=== PATIENT | female | born 1970 | race Caucasian/White ===

== ENCOUNTER 2018-02-13 11:42 | Emergency (ER) | payer BC ==
[2018-02-13 12:43] LABS: BASO # 0.1 10^3/uL (0.0-0.2); BASO % 0.7 % (0.0-1.0); EOS # 0.4 10^3/uL (0.0-0.50); HEMATOCRIT 38.7 % (36.0-47.0); HEMOGLOBIN 13.5 g/dl (12.0-15.5); IMMATURE GRANULOCYTE % 1.2 % (0-3.0); LYMPH # 3.5 10^3/uL (1.5-4.5); LYMPH % 25.7 % (24.0-44.0); MEAN CORPUSCULAR HEMOGLOBIN 30.6 pg (27.0-33.0); MEAN CORPUSCULAR HGB CONC 34.9 g/dl (32.0-36.5); MEAN CORPUSCULAR VOLUME 87.8 fl (80.0-96.0); MONO # 0.9 10^3/uL (0.0-0.8); MONO % 6.7 % (0.0-5.0); NEUTROPHILS # 8.6 10^3/uL (1.8-7.7); NEUTROPHILS % 62.7 % (36.0-66.0); PLATELET COUNT, AUTOMATED 234 10^3/uL (150-450); RED BLOOD COUNT 4.41 10^6/uL (4.00-5.40); RED CELL DISTRIBUTION WIDTH 12.4 % (11.5-14.5); WHITE BLOOD COUNT 13.6 10^3/uL (4.0-10.0)
[2018-02-13 13:09] LABS: ANION GAP 9 MEQ/L (8-16); BLOOD UREA NITROGEN 12 MG/DL (7-18); CALCIUM LEVEL 8.8 MG/DL (8.5-10.1); CARBON DIOXIDE LEVEL 25 MEQ/L (21-32); CHLORIDE LEVEL 106 MEQ/L (98-107); CREATININE FOR GFR 0.79 MG/DL (0.55-1.30); GLOMERULAR FILTRATION RATE > 60.0 (>58); GLUCOSE, FASTING 82 MG/DL (70-100); POTASSIUM SERUM 3.9 MEQ/L (3.5-5.1); SODIUM LEVEL 140 MEQ/L (136-145)
[2018-02-13] MEDS ORDERED: GASTROGRAFIN SOLUTION 30ML (Q9963) As Ordered (13:27)
[2018-02-13] MEDS: GASTROGRAFIN SOLUTION 30ML PO ×2 (14:20→14:21)
[2018-02-13] MEDS ORDERED: ISOVUE-370 76% 100ML VIAL (Q9967) As Ordered (15:00)
== END 2018-02-13 16:21 | disposition home or self-care (01) ==
LOC: M ED 11:42
DX: K57.81 Diverticulitis of intestine, part unspecified, with perforation and abscess with bleeding (principal); N83.291 Other ovarian cyst, right side; G47.00 Insomnia, unspecified
CPT/HCPCS: Q9967

== ENCOUNTER 2018-04-13 09:41 | Day surgery (SDC) | payer BC ==
[~2018-04-13 09:41] MED LIST: LIDOCAINE 2% INJ 100 MG/5 ML SDV (FOR ANES.) As Ordered
[2018-04-13] MEDS ORDERED: NS 1,000 ML IV (10:30)
[2018-04-13] MEDS ORDERED: PROPOFOL 200 MG/20 ML VIAL As Ordered ×2 (10:51)
== END 2018-04-13 11:38 | disposition home or self-care (01) ==
LOC: M OPP 09:41
DX: K62.5 Hemorrhage of anus and rectum (principal); K64.8 Other hemorrhoids; G47.30 Sleep apnea, unspecified; Z98.890 Other specified postprocedural states
CPT/HCPCS: 45378

== ENCOUNTER 2019-01-01 11:06 | Day surgery (SDC) | payer OTHER ==
[~2019-01-01] VITALS: Ht 154.9 cm; Wt 65.5 kg
[~2019-01-01 11:06] MED LIST changes: +AMBI10TA PO; +AMBI5TAB PO; +AMOX875T PO; +BENA25CA4 PO; -LIDOCAINE 2% INJ 100 MG/5 ML SDV (FOR ANES.) As Ordered; +METO5TAB2 PO; +NS 1,000 ML IV ONE; +RANI150T PO; +TAMO10TA PO
[2019-01-01] MEDS ORDERED: LIDOCAINE 2% INJ 100 MG/5 ML SDV (FOR ANES.) As Ordered ONE (12:19)
[2019-01-01] MEDS ORDERED: PROPOFOL 200 MG/20 ML VIAL As Ordered ONE (12:19)
[2019-01-01] MEDS ORDERED: fentaNYL 100 MCG/2 ML INJECTION (J3010) As Ordered ONE (12:46)
[2019-01-01 13:30] VITALS: BP 134/82
--- NOTE | 2019-01-01 13:38 | ROOR ---
Patient Name: Vandana Mckinney Procedure Date: 01/01/2019 12:43 PM Date of : 1970 Age: 48 Room: [facility] Gender: Female Note Status: Finalized Procedure: Upper GI endoscopy Indications: Dyspepsia, Nausea Providers: Hola Smith MD Referring MD: Darci Sandoval DO, Sergio Rodgers Md Mph Requesting Provider: Medicines: Monitored Anesthesia Care Complications: No immediate complications. Procedure: Pre-Anesthesia Assessment: - Prior to the procedure, a History and Physical was performed, and patient medications and allergies were reviewed. The patient is competent. The risks and benefits of the procedure and the sedation options and risks were discussed with the patient. All questions were answered and informed consent was obtained. Patient identification and proposed procedure were verified by the physician, the nurse and the anesthesiologist in the procedure room. Mental Status Examination: alert and oriented. Airway Examination: normal oropharyngeal airway and neck mobility. Respiratory Examination: clear to auscultation. CV Examination: normal. Prophylactic Antibiotics: The patient does not require prophylactic antibiotics. Prior Anticoagulants: The patient has taken no previous anticoagulant or antiplatelet agents. ASA Grade Assessment: II - A patient with mild systemic disease. After reviewing the risks and benefits, the patient was deemed in satisfactory condition to undergo the procedure. The anesthesia plan was to use monitored anesthesia care (MAC). Immediately prior to administration of medications, the patient was re-assessed for adequacy to receive sedatives. The heart rate, respiratory rate, oxygen saturations, blood pressure, adequacy of pulmonary ventilation, and response to care were monitored throughout the procedure. The physical status of the patient was re-assessed after the procedure. The Endoscope was introduced through the mouth, and advanced to the second part of duodenum. The upper GI endoscopy was accomplished without difficulty. The patient tolerated the procedure well. Findings: The examined esophagus was normal. The Z-line was regular and was found in the distal esophagus. Scattered mild inflammation characterized by erythema and granularity was found in the gastric antrum. Biopsies were taken with a cold forceps for Helicobacter pylori testing. Verification of patient identification for the specimen was done by the physician and nurse using the patient's name, date and medical record number. Estimated blood loss was minimal. The duodenal bulb and second portion of the duodenum were normal. Biopsies for histology were taken with a cold forceps for evaluation of celiac disease. Impression: - Normal esophagus. - Z-line regular, in the distal esophagus. - Gastritis. Biopsied. - Normal duodenal bulb and second portion of the duodenum. Biopsied. Recommendation: - Patient has a contact number available for emergencies. The signs and symptoms of potential delayed complications were discussed with the patient. Return to normal activities tomorrow. Written discharge instructions were provided to the patient. - Resume previous diet. - Continue present medications. - Await pathology results. - Telephone GI clinic for pathology results in 2 weeks. - Return to primary care physician. Hola Smith MD Hola Smith MD 01/01/2019 1:38:21 PM Electronically signed by Hola Smith MD Number of Addenda: 0 Note Initiated On: 01/01/2019 12:43 PM Estimated Blood Loss: Estimated blood loss was minimal.
== END 2019-01-01 13:30 | disposition home or self-care (01) ==
LOC: M OPP 11:06
PROVIDERS: ATTEND Internal Medicine Gastroenterology
DX: K29.70 Gastritis, unspecified, without bleeding (principal); R11.0 Nausea; R10.13 Epigastric pain; Z79.899 Other long term (current) drug therapy
CPT/HCPCS: 43239; 88305; J3010

== ENCOUNTER → 2020-07-10 | Outpatient (CLI) | payer OTHER ==
[~2020-07-10] MED LIST changes: -NS 1,000 ML IV ONE
== END ==
LOC: M LABSMTC 09:54
PROVIDERS: ATTEND Anesthesiology
DX: Z01.812 Encounter for preprocedural laboratory examination (principal); Z20.822 Contact with and (suspected) exposure to COVID-19

== ENCOUNTER 2020-07-15 10:09 | Day surgery (SDC) | payer BC ==
[~2020-07-15] VITALS: Ht 154.9 cm; Wt 65.8 kg
[~2020-07-15 10:09] MED LIST changes: +LIDOCAINE 1% MDV 20ML VIAL SQ PRN; +LIDOCAINE 2% 100MG/5ML SDV (FOR ANES.) As Ordered ONE; +LR 1,000 ML IV ONE; +MIDAZOLAM INJ 2MG/2ML VIAL (J2250 PER 1MG) As Ordered ONE; +ONDANSETRON 4MG/2ML VIAL As Ordered ONE; +ROCURONIUM BROMIDE 50 MG/5 ML VIAL As Ordered ONE; +ceFAZolin SOD 1 GM in D5W MINI-BAG PLUS 50 ML IV ONE; +dexameTHASONE 4 MG/ML 1ML VIAL (J1100 PER 1MG) As Ordered ONE; +fentaNYL 250 MCG/5 ML INJECTION (J3010) As Ordered ONE; +propofoL 200 MG/20 ML VIAL As Ordered ONE
[2020-07-15] MEDS ORDERED: BUPIVACAINE LIPOSOME/PF 1.3% 20ML VIAL (13.3MG/ML)(EXPAREL)(C9290 PER1MG) As Ordered ONE ×2 (11:55→12:38)
[2020-07-15] MEDS ORDERED: BACITRACIN PWD 50,000 UNITS VIAL As Ordered ONE ×2 (11:55→12:12)
[2020-07-15] MEDS ORDERED: SEVOFLURANE INHAL SOLN 250 ML BTL As Ordered ONE (12:00)
[2020-07-15] MEDS ORDERED: METOCLOPRAMIDE INJ 10MG/2ML VIAL (J2765 PER 1) As Ordered ONE ×2 (13:10→16:12)
[2020-07-15] MEDS ORDERED: SUGAMMADEX SODIUM 500 MG/5 ML VIAL (BRIDION) As Ordered ONE (13:13)
[2020-07-15] MEDS ORDERED: ACETAMINOPHEN 1000MG 100ML IV BTL (OFIRMEV) (J0131 PER 10MG) As Ordered ONE (13:13)
[2020-07-15] MEDS ORDERED: ePHEDrine SULFATE 25 MG/5 ML(5MG/ML) SYRINGE As Ordered ONE (13:21)
[2020-07-15] MEDS ORDERED: ROCURONIUM BROMIDE 50 MG/5 ML VIAL As Ordered ONE (13:37)
[2020-07-15] MEDS ORDERED: HYDROmorphone HCL 2 MG/ML 1ML VIAL (J1170) As Ordered ONE (14:07)
--- NOTE | 2020-07-15 15:08 | POST-OPPD ---
Postoperative Procedure Note Date Of Procedure: Jul 15, 2020 PREOPERATIVE DIAGNOSIS: H/o Right breast malignant neoplasm. Acquired asymmetry breasts. POSTOPERATIVE DIAGNOSIS: same FINDINGS: Right breast s/p radiation, lumpectomy. Left breast with ptosis. Larger size. PROCEDURE: Breast reconstruction via bilateral breast augmentation with left breast mastopexy. SURGEON: Dr Clancy ANESTHESIA: General SPECIMENS: none ESTIMATED BLOOD LOSS: 50 cc REPLACED: none DRAINS: none IMPLANTS: [place] gel moderate plus. Right side 200cc, Left side 175cc. COMPLICATIONS: none POSTOPERATIVE CONDITION: stable LYLA CLANCY DO Jul 15, 2020 15:07
--- NOTE | 2020-07-15 15:08 | ROOPDOC ---
[facility] Report Of Operation Report of Operation DATE OF PROCEDURE: 07/15/20 PREOPERATIVE DIAGNOSIS: H/o Right breast malignant neoplasm. Acquired asymmetry breasts. POSTOPERATIVE DIAGNOSIS: same FINDINGS: Right breast s/p radiation, lumpectomy. Left breast with ptosis. Larger size. PROCEDURE: Breast reconstruction via bilateral breast augmentation with left breast mastopexy. SURGEON: Dr Clancy ANESTHESIA: General SPECIMENS: none ESTIMATED BLOOD LOSS: 50 cc REPLACED: none DRAINS: none IMPLANTS: [place] gel moderate plus. Right side 200cc, Left side 175cc. COMPLICATIONS: none POSTOPERATIVE CONDITION: stable DESCRIPTION OF PROCEDURE: This is a 50-year-old female who presents to our office complaining of asymmetry between the right and left breast. Patient is status post right breast lumpectomy with sentinel lymph node biopsy followed by radiation. Currently she has smaller and thicker breast on the right and larger left breast with ptosis. Her measurements are from sternal notch to the nipple areolar complex 24 cm on the left and 21 cm on the right. Her inframammary fold (IMF) is at 21 cm. Patient wishes to achieve full symmetry. She has contracted scar from biopsy on the right lateral breast and well-healed scar in the lower right axilla. Bilateral breast augmentation and mastopexy of the left breast would achieve symmetry and is appropriate choice of procedure. Risks, benefits, and alternatives were discussed with the patient in detail, and she is ready to proceed. The day of surgery, she was marked in the upright position. Preoperative antibiotics given. Informed consent obtained. She was brought into the operating room and placed in supine position. General anesthesia was induced. She was prepped and draped in the usual sterile fashion. We started our procedure on the right side. Inframammary incision was carried out 5 cm width. Was started dissection to create a subglandular pocket for the implant. Dissection was done under direct vision with lighted retractor. Electrocautery was used for hemostasis. Wound is irrigated with bacitracin irrigation solution. 175 mL [place] gel implant sizer was introduced in the pocket. We choose to use 200 mL implant on that side. Then we turn our attention to the left side. Nipple areolar complex was outlined at 42 mm in diameter. Periareolar incision was carried out using 10 blade. Semicircular incision superior to the areolar was carried out as well. Supraperiareolar area was deepithelialized using Neil scissors. We continuing dissection inferiorly to create new subglandular pocket for the implant. Several 3-0 Monodryl sutures were used to tuck the nipple areolar complex to its new position, to aide the symmetry. Pocket was created under direct vision with lighted retractor. Electrocautery was used for hemostasis. Wound is irrigated with bacitracin irrigation solution. 175 mL [place] gel implant sizer was introduced in the pocket. Given that this is a larger breast 175 mL implant would be perfect size to match the right side. 175 mL [place] gel implant moderate plus profile was introduced and a stab glandular pocket on the left side without difficulties using Gray funnel. Pocket closed in layers with 3-0 Vicryl sutures 3-0 Monocryl sutures. Nipple areolar complex sutured in place with multiple interrupted 3-0 Monocryl, 4-0 Monocryl, and 5-0 plain gut sutures. 200 mL [place] gel implant moderate plus profile was introduced and subglandular pocket on the right side without difficulties using Gray funnel. It created symmetry with the left side. Pocket closed with 3-0 Vicryl sutures 3-0 Monocryl sutures. Steri-Strips used for dressings on both sides. Right side covered with Telfa and Tegaderm. The left side bulky dressing. Surgical bra is applied Patient was extubated in the operating room without any difficulty and transferred to the recovery room in stable condition. LYLA CLANCY DO Jul 15, 2020 15:08
[2020-07-15] MEDS ORDERED: ONDANSETRON 4MG/2ML VIAL As Ordered ONE (15:10)
[2020-07-15] MEDS ORDERED: OXYC1TAB23 PO (15:11)
[2020-07-15] MEDS ORDERED: oxyCODONE 5MG TAB As Ordered ONE (15:32)
[2020-07-15] MEDS ORDERED: fentaNYL 100 MCG/2 ML INJECTION (J3010) As Ordered ONE (15:32)
[2020-07-15] MEDS: oxyCODONE 5MG TAB PO PRN ×2 (15:36→17:20)
[2020-07-15] MEDS ORDERED: ONDANSETRON 4MG/2ML VIAL IV PRN ×2 (16:05→16:15)
[2020-07-15] MEDS ORDERED: fentaNYL 100 MCG/2 ML INJECTION (J3010) IV PRN (16:05)
[2020-07-15] MEDS ORDERED: LR 1,000 ML IV SCH (16:05)
[2020-07-15] MEDS ORDERED: PROMETHAZINE INJ 25 MG/ML VIAL (J2550) IV PRN (16:15)
[2020-07-15] MEDS ORDERED: METOCLOPRAMIDE INJ 10MG/2ML VIAL (J2765 PER 1) IV PRN (16:15)
[2020-07-15 17:25] VITALS: BP 133/68
== END 2020-07-15 17:25 | disposition home or self-care (01) ==
LOC: M SDC 10:09
PROVIDERS: ATTEND Plastic Surgery Surgery of the Hand
DX: N64.81 Ptosis of breast (principal); Z85.3 Personal history of malignant neoplasm of breast; K76.9 Liver disease, unspecified; Z92.21 Personal history of antineoplastic chemotherapy; Z92.3 Personal history of irradiation; Z79.818 Long term (current) use of other agents affecting estrogen receptors and estrogen levels
CPT/HCPCS: 19316; 19325; C9290; J0690; J1100; J1170; J2250; J2405; J2765; J3010; L8600

== ENCOUNTER → 2023-06-15 | Outpatient (REF) | payer BC ==
[~2023-06-15] MED LIST changes: -LIDOCAINE 1% MDV 20ML VIAL SQ PRN; -LIDOCAINE 2% 100MG/5ML SDV (FOR ANES.) As Ordered ONE; -LR 1,000 ML IV ONE; -MIDAZOLAM INJ 2MG/2ML VIAL (J2250 PER 1MG) As Ordered ONE; -ONDANSETRON 4MG/2ML VIAL As Ordered ONE; +OXYC1TAB23 PO; -ROCURONIUM BROMIDE 50 MG/5 ML VIAL As Ordered ONE; -TAMO10TA PO; +TAMO10TA8 PO; -ceFAZolin SOD 1 GM in D5W MINI-BAG PLUS 50 ML IV ONE; -dexameTHASONE 4 MG/ML 1ML VIAL (J1100 PER 1MG) As Ordered ONE; -fentaNYL 250 MCG/5 ML INJECTION (J3010) As Ordered ONE; -propofoL 200 MG/20 ML VIAL As Ordered ONE
== END ==
LOC: M SFHCDERM 14:03
PROVIDERS: ATTEND Dermatology
DX: Z51.89 Encounter for other specified aftercare (principal)

== ENCOUNTER → 2023-07-06 | Outpatient (REF) | payer BC | LOC: M SFHCDERM 17:10 | PROVIDERS: ATTEND Dermatology | DX: Z51.89 Encounter for other specified aftercare (principal) ==

== ENCOUNTER → 2024-02-29 | Outpatient (REF) | payer BC | LOC: M SFHCDERM 17:45 | PROVIDERS: ATTEND Dermatology | DX: L57.0 Actinic keratosis (principal); L57.8 Other skin changes due to chronic exposure to nonionizing radiation ==

== ENCOUNTER → 2024-03-22 | Outpatient (CLI) | payer BC ==
[~2024-03-22] MED LIST changes: +GASTROGRAFIN SOLUTION 30ML As Ordered ONE; +ISOVUE-370 76% 100ML VIAL As Ordered ONE
== END ==
LOC: M RAD 08:54
PROVIDERS: ATTEND Internal Medicine Medical Oncology
DX: C50.119 Malignant neoplasm of central portion of unspecified female breast (principal)

== ENCOUNTER → 2024-05-04 | Outpatient (CLI) | payer BC ==
[~2024-05-04] MED LIST changes: -GASTROGRAFIN SOLUTION 30ML As Ordered ONE; -ISOVUE-370 76% 100ML VIAL As Ordered ONE
== END ==
LOC: M RAD 10:04
PROVIDERS: ATTEND Internal Medicine Medical Oncology
DX: C50.912 Malignant neoplasm of unspecified site of left female breast (principal)
CPT/HCPCS: 78306; A9503

== ENCOUNTER → 2024-08-06 | Outpatient (CLI) | payer BC ==
[~2024-08-06] MED LIST changes: +GABA-1171; +ISOVUE-370 76% 100ML VIAL As Ordered ONE
== END ==
LOC: M RAD 08:27
PROVIDERS: ATTEND Internal Medicine Medical Oncology
DX: C50.911 Malignant neoplasm of unspecified site of right female breast (principal)
CPT/HCPCS: 71260; Q9967